=== PATIENT | female | born 1955 | race Caucasian/White ===

== ENCOUNTER → 2016-12-01 | Outpatient (CLI) | payer BC ==
[~2016-12-01] MED LIST: ATOR-22 PO; BUTACAP36 PO; LEVO75TA PO
--- NOTE | 2016-12-01 15:17 | MAMMOGRAPHY REPORT ---
BILATERAL DIGITAL SCREENING MAMMOGRAM TOMOSYNTHESIS WITH CAD: 12/01/2016 CLINICAL HISTORY: Routine screening. TECHNIQUE: Breast tomosynthesis in addition to standard 2D mammography was performed. Current study was also evaluated with a Computer Aided Detection (CAD) system. COMPARISON: Comparison is made to exams dated: 11/28/2014 mammogram, 11/22/2013 mammogram, 11/21/2012 m ammogram, 11/18/2011 mammogram, 09/23/2010 mammogram, and 09/17/2009 mammogram - [facility]. BREAST COMPOSITION: There are scattered areas of fibroglandular density in both breasts. FINDINGS: No suspicious mass, architectural distortion or cluster of microcalcifications is seen. IMPRESSION: ACR BI-RADS CATEGORY 1: NEGATIVE There is no mammographic evidence of malignancy. A 1 year screening mammogram is recommended. The pa tient will receive written notification of the results. Approximately 10% of breast cancers are not detected with mammography. A negative mammographic report should not delay biopsy if a clinically suggestive mass is present. Ana María lucero/pencharissa:12/01/2016 08:07:45 Supervisor Spinning: Eduarda Friedman RT(R)(M), [facility] letter sent: Normal 1/2 BI-RADS Code: ACR BI-RADS Category 1: Negative
== END | disposition home or self-care (01) ==
LOC: C.MAMM 07:19
PROVIDERS: ATTEND Family Medicine
DX: Z12.31 Encounter for screening mammogram for malignant neoplasm of breast (principal)

== ENCOUNTER 2020-11-28 20:47 | Inpatient (IN) ==
[2020-11-28] MEDS ORDERED: PANTOprazole 80 MG in DEXTROSE 5% 100 ML IV ONE (21:48)
--- NOTE | 2020-11-28 21:54 | Emergency Department Note ---
History of Present Illness General Chief complaint: Rectal Bleed Stated complaint: BLOOD IN DIARRHEA Time Seen by Provider: 11/28/20 21:40 Source: patient History of Present Illness Provider complaint: Rectal bleeding and abdominal pain Onset (ago): hour(s) Location: abdomen Radiation: non-radiation Pain Consistency: + constant and + intermittent Quality: + other (Cramping pain) Relieved By: + none Associated symptoms: + headaches (Chronic migraines); no chest pain, no cough, no fever/chills, no nausea/vomiting, no shortness of breath or no weakness This is a 65-year-old female who presents with 6 episodes of rectal bleeding since 6 PM tonight. The patient states that initially was bright red but then it became dark. She thought there was some blood mixed in with the stool as well. She states her stools have been dark but not black. She is not on any blood thinners but she does take Ecotrin once a day about 3-4 times a week for chronic migraine headaches. She is also on nortriptyline for her migraine headaches. She denies any NSAID use. She also complains of abdominal pain which she describes as a cramping pain in the mid and upper abdomen. No modifying factors. No associated vomiting. She denies any fever, cough or cold symptoms, chest pain, shortness of breath or urinary symptoms or hematuria. She does states she had a colonoscopy in 2017 which showed hemorrhoids and a polyp. She does state that she has been having some diarrhea. Home Medications Medication Instructions Recorded Confirmed Type atorvastatin 40 mg tablet 40 mg PO HS 12/13/17 11/28/20 History omega-3 360 dd-pjn-hjh-fish oil 1 cap PO DAILY 11/09/18 11/28/20 History 1,200 mg capsule,delayed release (Fish Oil) amitriptyline 25 mg tablet 25 mg PO HS 30 Days #30 tab 10/09/20 11/28/20 Rx fluticasone propionate 50 2 spray INTRANASAL DAILY 11/28/20 11/28/20 History mcg/actuation nasal spray,suspension levothyroxine 100 mcg tablet 100 mcg PO DAILY 11/28/20 11/28/20 History multivitamin 1 tab PO DAILY 11/28/20 11/28/20 History Allergies Allergy/AdvReac Type Severity Reaction Status Date / Time Sulfa (Sulfonamide Allergy Severe SOB Verified 11/28/20 22:36 Antibiotics) sulfamethoxazole Allergy Severe SOB Verified 11/28/20 22:36 trimethoprim Allergy Severe SOB Verified 11/28/20 22:36 Penicillins Allergy Intermediate HIVES Verified 11/28/20 22:36 influenza virus vacc Allergy Unknown CAN'T Verified 11/28/20 22:36 trivalent, split REMEMBER [From Fluzone] topiramate [From Topamax] AdvReac Intermediate HEART Verified 11/28/20 22:40 RACING, UPSET STOMACH Past Med/Surg History Medical History (Updated 11/29/20 @ 00:23 by Maurice Madden MD) Migraine Right foot sprain Family History Sister FH: kidney cancer Social History Smoking Status: Never smoker Preferred Language: Ugandan Current Living Situation: Family Feels Safe at Home: Yes Review of Systems See HPI for pertinent positives & negatives. and A total of 10 systems reviewed and were otherwise negative Physical Exam Vital Signs Vital Signs - 24 hr 11/28/20 20:59 11/28/20 22:09 11/28/20 23:00 Temperature 36.7 C Temperature Source Temporal Artery Scan Pulse Rate 122 H 116 H Pulse Rate [Carotid] 111 H Pulse Rhythm [Carotid] Regular Respiratory Rate 18 19 Respiratory Effort / Characteristics Non-Labored Spontaneous Non-Labored Respiratory Depth Normal Normal Respiratory Pattern Regular Blood Pressure 140/92 Blood Pressure [Left Arm] 133/88 Blood Pressure Mean 108 Blood Pressure Mean [Left Arm] 103 Blood Pressure Position [Left Arm] Lying Pulse Oximetry 96 95 94 Oxygen Delivery Method Room Air Room Air Sepsis Recent Fever Within 48 Hours No Sepsis New/Unexplained Change in Mental Status No Sepsis Action Taken by Nursing No Action Required Constitutional: Vital signs reviewed. Eyes: Pupils are equal round reactive to light. Conjunctiva are noninjected. ENT: Pharynx is clear without erythema or exudate. Mucous membranes are moist. Neck supple without meningeal signs. Respiratory: Clear to auscultation bilaterally. Breath sounds are equal bilaterally. Cardiovascular: Tachycardic. Regular rhythm. GI: Soft, nondistended with mild supraumbilical tenderness. No guarding. Bowel sounds are present. Rectal: Nonbleeding external hemorrhoid. Dark blood on digital rectal examination without stool. Musculoskeletal: No peripheral edema. No lower extremity tenderness. Integumentary: No cyanosis. or jaundice. Neurological: The patient is awake and alert. No focal deficits. Psychiatric: Anxious. Course Administered Medications Pantoprazole Sodium 40 mg/ (Dextrose) 100 mls @ 20 mls/hr IV Q5H KENAN Stop: 11/29/20 02:59 Last Admin: 11/28/20 22:55 Dose: 8 mg/hr, 20 mls/hr Documented by: [id number] Discontinued Medications Pantoprazole Sodium 80 mg/ (Dextrose) 100 mls @ 400 mls/hr IV NOW ONE Stop: 11/28/20 22:02 Last Infusion: 11/28/20 22:57 Dose: 0 mls/hr Documented by: [id number] Admin: 11/28/20 22:45 Dose: 400 mls/hr Documented by: [id number] Ioversol (Optiray 320 100ml) 94 ml IV ONCE ONE Stop: 11/28/20 22:28 Last Admin: 11/28/20 22:28 Dose: 1 ml Documented by: [id number] Critical Care Time Critical Care Time: Yes Total Critical Care Time: 35 I have personally spent approximately 35 minutes of critical care time in the direct management of this patient. This includes bedside care, interpretation of diagnostic studies, and testing, discussion with consultants, patient, and family members, and other required patient management activities. These minutes are in excess of all separately billable procedures. Medical Decision Making Differential Diagnosis Peptic ulcer disease, gastritis, GI bleed, diverticulosis, anemia Medical Records Attestation: I reviewed the patient's medical records. I did perform a limited focused review of portions of the patient's old chart on the electronic medical record. The patient has had no recent pertinent visits to this hospital. Home Medications Current Medication List: was personally reviewed by me Laboratory Data Attestation: I reviewed the patient's lab results. Result diagrams: 11/28/20 23:29 11/28/20 22:01 Lab Results 11/28/20 11/28/20 11/28/20 Range/Units 22:01 22:01 22:01 WBC 10.96 H (4.8-10.8) K/uL RBC 3.87 L (4.2-5.4) M/uL Hgb 12.3 (12.0-16.0) g/dL Hct 36.0 L (37-47) % MCV 93.0 (80-100) fL MCH 31.8 (25-34) pg MCHC 34.2 (32-36) g/dL RDW Std Deviation 42.4 (36.4-46.3) fL RDW Coeff of Khushi 12.6 (11.5-14.5) % Plt Count 337 (130-400) K/uL MPV 9.2 (7.4-10.4) fL Immature Gran % (Auto) 0.1 % Neut % (Auto) 64.6 % Lymph % (Auto) 26.9 % Divide % (Auto) 5.6 % Eos % (Auto) 2.3 % Baso % (Auto) 0.5 % Neut # (Auto) 7.09 H (1.4-6.5) K/uL Lymph # (Auto) 2.95 (1.2-3.4) K/uL Divide # (Auto) 0.61 H (0.11-0.59) K/uL Eos # (Auto) 0.25 (0-0.5) K/uL Baso # (Auto) 0.05 (0-0.2) K/uL Immature Gran # (Auto) 0.01 (0.00-0.02) K/uL PT (9.0-12.0) Seconds INR (0.9-1.1) APTT (21.0-31.0) Seconds PTT Ratio Sodium 141 (136-145) mmol/L Potassium 4.1 (3.5-5.1) mmol/L Chloride 107 (98-107) mmol/L Carbon Dioxide 25 (21-32) mmol/L Anion Gap 8.0 (3-11) BUN 16 (7-18) mg/dl Creatinine 1.20 (0.6-1.2) mg/dl Est Cr Clr Drug Dosing 42.7 ml/min Est GFR ( Amer) 54.9 ml/min Est GFR (Non-Af Amer) 47.4 ml/min BUN/Creatinine Ratio 13.4 (10-20) Glucose 187 H (70-99) mg/dl Calcium 8.9 (8.5-10.1) mg/dl Total Bilirubin 0.4 (0.2-1) mg/dl AST 25 (15-37) U/L ALT 55 (12-78) U/L Alkaline Phosphatase 75 (45-117) U/L Total Protein 6.8 (6.4-8.2) gm/dl Albumin 3.7 (3.4-5.0) gm/dl Globulin 3.1 (2.5-4.0) gm/dl Albumin/Globulin Ratio 1.2 (0.9-2) COVID-19 Eval Order SARS-CoV-2 (PCR) (Negative) Blood Type A Positive Antibody Screen NEGATIVE 11/28/20 11/28/20 11/28/20 Range/Units 22:01 22:31 22:31 WBC (4.8-10.8) K/uL RBC (4.2-5.4) M/uL Hgb (12.0-16.0) g/dL Hct (37-47) % MCV (80-100) fL MCH (25-34) pg MCHC (32-36) g/dL RDW Std Deviation (36.4-46.3) fL RDW Coeff of Khushi (11.5-14.5) % Plt Count (130-400) K/uL MPV (7.4-10.4) fL Immature Gran % (Auto) % Neut % (Auto) % Lymph % (Auto) % Divide % (Auto) % Eos % (Auto) % Baso % (Auto) % Neut # (Auto) (1.4-6.5) K/uL Lymph # (Auto) (1.2-3.4) K/uL Divide # (Auto) (0.11-0.59) K/uL Eos # (Auto) (0-0.5) K/uL Baso # (Auto) (0-0.2) K/uL Immature Gran # (Auto) (0.00-0.02) K/uL PT 10.1 (9.0-12.0) Seconds INR 1.0 (0.9-1.1) APTT 24.6 (21.0-31.0) Seconds PTT Ratio 0.9 Sodium (136-145) mmol/L Potassium (3.5-5.1) mmol/L Chloride (98-107) mmol/L Carbon Dioxide (21-32) mmol/L Anion Gap (3-11) BUN (7-18) mg/dl Creatinine (0.6-1.2) mg/dl Est Cr Clr Drug Dosing ml/min Est GFR ( Amer) ml/min Est GFR (Non-Af Amer) ml/min BUN/Creatinine Ratio (10-20) Glucose (70-99) mg/dl Calcium (8.5-10.1) mg/dl Total Bilirubin (0.2-1) mg/dl AST (15-37) U/L ALT (12-78) U/L Alkaline Phosphatase (45-117) U/L Total Protein (6.4-8.2) gm/dl Albumin (3.4-5.0) gm/dl Globulin (2.5-4.0) gm/dl Albumin/Globulin Ratio (0.9-2) COVID-19 Eval Order Covid19 at [facility] SARS-CoV-2 (PCR) NEGATIVE (Negative) Blood Type Antibody Screen 11/28/20 Range/Units 23:29 WBC (4.8-10.8) K/uL RBC (4.2-5.4) M/uL Hgb 11.4 L (12.0-16.0) g/dL Hct 33.6 L (37-47) % MCV (80-100) fL MCH (25-34) pg MCHC (32-36) g/dL RDW Std Deviation (36.4-46.3) fL RDW Coeff of Khushi (11.5-14.5) % Plt Count (130-400) K/uL MPV (7.4-10.4) fL Immature Gran % (Auto) % Neut % (Auto) % Lymph % (Auto) % Divide % (Auto) % Eos % (Auto) % Baso % (Auto) % Neut # (Auto) (1.4-6.5) K/uL Lymph # (Auto) (1.2-3.4) K/uL Divide # (Auto) (0.11-0.59) K/uL Eos # (Auto) (0-0.5) K/uL Baso # (Auto) (0-0.2) K/uL Immature Gran # (Auto) (0.00-0.02) K/uL PT (9.0-12.0) Seconds INR (0.9-1.1) APTT (21.0-31.0) Seconds PTT Ratio Sodium (136-145) mmol/L Potassium (3.5-5.1) mmol/L Chloride (98-107) mmol/L Carbon Dioxide (21-32) mmol/L Anion Gap (3-11) BUN (7-18) mg/dl Creatinine (0.6-1.2) mg/dl Est Cr Clr Drug Dosing ml/min Est GFR ( Amer) ml/min Est GFR (Non-Af Amer) ml/min BUN/Creatinine Ratio (10-20) Glucose (70-99) mg/dl Calcium (8.5-10.1) mg/dl Total Bilirubin (0.2-1) mg/dl AST (15-37) U/L ALT (12-78) U/L Alkaline Phosphatase (45-117) U/L Total Protein (6.4-8.2) gm/dl Albumin (3.4-5.0) gm/dl Globulin (2.5-4.0) gm/dl Albumin/Globulin Ratio (0.9-2) COVID-19 Eval Order SARS-CoV-2 (PCR) (Negative) Blood Type Antibody Screen Imaging Data Radiologist's Impression: [facility] Patient: ANKITA CANCHOLA (Female) : 55 Status: ER Date: 11/28/20 22:44 Room #: History: epigastric pain and rectal bleed Slices: [id number] Priors: Tech: Iain Guevara @ [phone] Exams: CT ABDOMEN & PELVIS With Contrast Contrast: IV Amt: 94 ml optiray Accession Numbers: [id number] Referring Physician: REFERRED SELF Preliminary Findings Only See Final Report For Complete Findings CT ABDOMEN & PELVIS With Contrast: Comparison to ultrasound report from August 22, 2007. The appendix is upper normal in diameter measuring 8-9 mm. There is normal gas in the appendix. No surrounding inflammation is seen to suggest acute appendicitis. Bowel loops are nondilated. There are scattered gas fluid levels in fluid-filled distended transverse and left colon suggesting gastroenteritis and/or ileus. There is diverticulosis of the left colon without signs of acute diverticulitis. Fatty infiltration of the liver. The gallbladder, pancreas, spleen, adrenal glands, and kidneys appear within normal limits. Aorta is mildly calcified but nondilated. The uterus, adnexa, and urinary bladder are unremarkable. Moderate degenerative changes in the lower lumbar spine with L4-5. No fracture or subluxation. Radiologist: Silverio Worley MD Study ready at 22:50 and initial results transmitted at 23:13 ECG Data Attestation: I personally reviewed and interpreted this ECG as follows: Indication: + tachycardia Rate (beats per minute): 109 Rhythm: + sinus tachycardia ECG Neffs: + Normal ECG ST segments: no ST elevation ECG Findings: no PVCs MDM Narrative I did evaluate the patient as noted above. The patient presents with abdominal pain and rectal bleeding for the past several hours. She has dark red blood on rectal examination. IV access was established. I did treat her with Protonix. She was given a bolus and then placed on a continuous drip. I did place an order for continuous cardiac monitoring. The monitor showed sinus tachycardia rate of 108 bpm. I did order and personally review the patient's 12-lead EKG as described above. She has sinus tachycardia without acute ischemia. I did order and review the patient's blood work as noted in the electronic medical record. Her white count is 10.9. Hemoglobin is 12.3. Platelet count is 337. Coags in the lecture lites and LFTs are unremarkable. Glucose is elevated 187. I did order a CT of the abdomen and pelvis. I did review the images myself as well as the radiology report as described above. She has fluid in the colon but otherwise no acute changes. I did discuss the test results with the patient. I did recommend hospitalization for further care and evaluation. She was agreeable. I did later hear from the nurse that the patient try to get up and go to the bathroom. He found her walking towards the bathroom and caught her as she passed out. She did pass bright red blood from the rectum. She was unconscious for only a few seconds and her blood pressure was 105 systolic when he checked it. I did immediately assess her and her blood pressures up to 133/88. I did repeat an H&H and it was 11.4 compared to 12.3 earlier. I did discuss the case with Dr. Waldrop and his resident. They will consult gastr oenterology. She will be admitted to the hospital. Covid screening test was negative. Impression & Plan Acute gastrointestinal bleeding, Acute blood loss anemia, Syncope Discharge Plan Visit Data Chief Complaint: Rectal Bleed Stated Complaint: BLOOD IN DIARRHEA ED Provider: Maurice Madden Discharge Problem: Acute gastrointestinal bleeding, Acute blood loss anemia, Syncope Forms Stand Alone Forms: [facility] Prescriptions Prescriptions: No Action amitriptyline 25 mg tablet 25 mg PO HS 30 Days Qty: 30 RF: 5 omega 5-swu-btm-fish oil [Fish Oil] 360-1,200 mg capsule,delayed release(DR/EC) 1 cap PO DAILY RF: 0 atorvastatin 40 mg tablet 40 mg PO HS RF: 0 multivitamin Tablet 1 tab PO DAILY RF: 0 levothyroxine 100 mcg tablet 100 mcg PO DAILY RF: 0 fluticasone propionate [Flonase] 50 mcg/actuation [place],Suspension 2 spray INTRANASAL DAILY RF: 0 Referrals Referrals: Christiano Ellis DO [Primary Care Provider] -
[2020-11-28] MEDS ORDERED: PANTOprazole 40 MG in DEXTROSE 5% 100 ML IV SCH (22:00)
[2020-11-28 22:15] LABS: Basophils # (auto) 0.05 K/uL (0-0.2); Basophils % (auto) 0.5 %; Eosinophils # (auto) 0.25 K/uL (0-0.5); Eosinophils % (auto) 2.3 %; Hemoglobin 12.3 g/dL (12.0-16.0); Immature Granulocytes # (auto) 0.01 K/uL (0.00-0.02); Immature Granulocytes % (auto) 0.1 %; Lymphocytes # (auto) 2.95 K/uL (1.2-3.4); Lymphocytes % (auto) 26.9 %; Mean Corpuscular Hemoglobin 31.8 pg (25-34); Mean Corpuscular Hgb Conc 34.2 g/dL (32-36); Mean Platelet Volume 9.2 fL (7.4-10.4); Monocytes # (auto) 0.61 K/uL (0.11-0.59); Monocytes % (auto) 5.6 %; Neutrophils # (auto) 7.09 K/uL (1.4-6.5); Neutrophils % (auto) 64.6 %; Platelet Count 337 K/uL (130-400); RDW Coefficient of Variation 12.6 % (11.5-14.5); RDW Standard Deviation 42.4 fL (36.4-46.3); Red Blood Count 3.87 M/uL (4.2-5.4); White Blood Count 10.96 K/uL (4.8-10.8)
[2020-11-28 22:25] LABS: Partial Thromboplastin Ratio 0.9; Partial Thromboplastin Time 24.6 Seconds (21.0-31.0); Prothrombin Time 10.1 Seconds (9.0-12.0)
[2020-11-28] MEDS ORDERED: OPTIRAY 320 100ml IV ONE (22:27)
[2020-11-28 22:32] LABS: Albumin Level 3.7 gm/dl (3.4-5.0); BUN Creatinine Ratio 13.4 (10-20); Calcium 8.9 mg/dl (8.5-10.1); Creatinine Clr Calc Pharmacy 42.7 ml/min; Est GFR (African American) 54.9 ml/min; Est GFR (Non-African American) 47.4 ml/min; Potassium 4.1 mmol/L (3.5-5.1)
[2020-11-28 22:35] LABS: Albumin Globulin Ratio 1.2 (0.9-2); Bilirubin,Total 0.4 mg/dl (0.2-1); Globulin 3.1 gm/dl (2.5-4.0); Total Protein 6.8 gm/dl (6.4-8.2)
[2020-11-28 23:37] LABS: Hematocrit (blood only) 33.6 % (37-47); Hemoglobin 11.4 g/dL (12.0-16.0)
--- NOTE | 2020-11-29 00:16 | History & Physical Report ---
Date of Service November 29, 2020 Assessment & Plan (1) Acute gastrointestinal bleeding: Plan: 65-year-old female admitted for management of acute GI bleeding 1) acute GI bleed with anemia Baseline hemoglobin of 15 2 years ago, 12.4 on arrival to ER today 11.3 on repeat, 10.4 on second repeat Jerome bright red blood during bowel movements Unstable symptomatic anemia given syncope with decreasing blood counts Protonix drip, gastroenterology consult History colonoscopy with polyps in 2017 Patient would likely benefit from having both an EGD and colonoscopy. Transfusing 2 units of packed red blood cells Stool culture pending for bacterial infectious origin given acute onset within 1 day - cbc Q4 - aztreonam ppx given cephalosporin allergy dvt ppx: contraindicated fen/gi: npo, protonix drip code status: full code Dispo: PCU (2) Syncope: History of Present Illness Primary Care Provider: Christiano Ellis DO 65-year-old male past medical history of mixed headaches and migraines presenting to the emergency department for multiple episodes of rectal bleeding. She states that earlier today she noticed she has having some dark-colored stools and stomach cramps that progressed to bright red-colored blood in her diarrhea. She has not had anything happen like this before. Outside of the cramping she denies any pain with the bloody bowel movements. She states that the last few have been jerome blood. She does attest to feeling lightheaded and dizzy particularly when up and walking around. She does also have some fluttering or palpitations in her chest. She is not on any blood thinners but does take aspirin multiple times a week for her headaches and takes a daily fish oil pill. ER course: Significant for syncopal episode while trying to walk to the bathroom, rapidly decreasing hemoglobin of 1 unit loss in 1.5 hours. Allergies Allergy/AdvReac Type Severity Reaction Status Date / Time Sulfa (Sulfonamide Allergy Severe SOB Verified 11/28/20 22:36 Antibiotics) sulfamethoxazole Allergy Severe SOB Verified 11/28/20 22:36 trimethoprim Allergy Severe SOB Verified 11/28/20 22:36 Penicillins Allergy Intermediate HIVES Verified 11/28/20 22:36 influenza virus vacc Allergy Unknown CAN'T Verified 11/28/20 22:36 trivalent, split REMEMBER [From Fluzone] topiramate [From Topamax] AdvReac Intermediate HEART Verified 11/28/20 22:40 RACING, UPSET STOMACH Home Medications Medication Instructions Recorded Confirmed Type atorvastatin 40 mg tablet 40 mg PO HS 12/13/17 11/28/20 History omega-3 360 fb-rnn-cev-fish oil 1 cap PO DAILY 11/09/18 11/28/20 History 1,200 mg capsule,delayed release (Fish Oil) amitriptyline 25 mg tablet 25 mg PO HS 30 Days #30 tab 10/09/20 11/28/20 Rx fluticasone propionate 50 2 spray INTRANASAL DAILY 11/28/20 11/28/20 History mcg/actuation nasal spray,suspension levothyroxine 100 mcg tablet 100 mcg PO DAILY 11/28/20 11/28/20 History multivitamin 1 tab PO DAILY 11/28/20 11/28/20 History Past Med/Surg History Medical History (Updated 11/29/20 @ 00:23 by Maurice Madden MD) Migraine Right foot sprain Family History Sister FH: kidney cancer Social History Smoking Status: Never smoker Hx Alcohol Use: No Hx Substance Use: No Preferred Language: [place] Islander Communication Ability: Effective Beliefs That Will Affect Care: None Current Living Situation: Family Other Information That Helps Us Care for You: No Feels Safe at Home: Yes Assistive Devices: Glasses Review of Systems Review of Systems: All systems reviewed & are unremarkable except as noted in Subjective Physical Exam Physical Exam: const: pale appearing female laying in bed in trendelenburg card: tachycardic, regular rhythm pulm: cta, breathing easily on room air abd: epigastric tenderness, soft, no rebound or guarding ext: 2+ peripheral pulses Results & Data Results & Data ([facility]) Vital Signs (Past 12 Hours) Vital Signs Temp Pulse Pulse Resp BP BP Pulse Ox 11/28/20 23:00 111 H 19 133/88 94 11/28/20 22:09 116 H 95 11/28/20 20:59 36.7 C 122 H 18 140/92 96 Laboratory Results Laboratory Results WBC 10.96 K/uL (4.8-10.8) H 11/28/20 22:01 RBC 3.87 M/uL (4.2-5.4) L 11/28/20 22:01 Hgb 10.7 g/dL (12.0-16.0) L 11/29/20 00:18 Hct 32.1 % (37-47) L 11/29/20 00:18 MCV 93.0 fL (80-100) 11/28/20 22:01 MCH 31.8 pg (25-34) 11/28/20 22: MCHC 34.2 g/dL (32-36) 11/28/20 22:01 RDW Std Deviation 42.4 fL (36.4-46.3) 11/28/20 22:01 RDW Coeff of Khushi 12.6 % (11.5-14.5) 11/28/20 22: Plt Count 337 K/uL (130-400) 11/28/20 22:01 MPV 9.2 fL (7.4-10.4) 11/28/20 22:01 Immature Gran % (Auto) 0.1 % 11/28/20 22: Neut % (Auto) 64.6 % 11/28/20 22:01 Lymph % (Auto) 26.9 % 11/28/20 22:01 [place] % (Auto) 5.6 % 11/28/20 22:01 Eos % (Auto) 2.3 % 11/28/20 22: Baso % (Auto) 0.5 % 11/28/20 22:01 Neut # (Auto) 7.09 K/uL (1.4-6.5) H 11/28/20 22: Lymph # (Auto) 2.95 K/uL (1.2-3.4) 11/28/20 22:01 [place] # (Auto) 0.61 K/uL (0.11-0.59) H 11/28/20 22:01 Eos # (Auto) 0.25 K/uL (0-0.5) 11/28/20 22: Baso # (Auto) 0.05 K/uL (0-0.2) 11/28/20 22: Immature Gran # (Auto) 0.01 K/uL (0.00-0.02) 11/28/20 22: PT 10.1 Seconds (9.0-12.0) 11/28/20 22:01 INR 1.0 (0.9-1.1) 11/28/20 22:01 APTT 24.6 Seconds (21.0-31.0) 11/28/20 22:01 PTT Ratio 0.9 11/28/20 22:01 Sodium 141 mmol/L (136-145) 11/28/20 22:01 Potassium 4.1 mmol/L (3.5-5.1) 11/28/20 22:01 Chloride 107 mmol/L (98-107) 11/28/20 22:01 Carbon Dioxide 25 mmol/L (21-32) 11/28/20 22:01 Anion Gap 8.0 (3-11) 11/28/20 22:01 BUN 16 mg/dl (7-18) 11/28/20 22:01 Creatinine 1.20 mg/dl (0.6-1.2) 11/28/20 22:01 Est Cr Clr Drug Dosing 42.7 ml/min 11/28/20 22:01 Est GFR ( Amer) 54.9 ml/min 11/28/20 22:01 Est GFR (Non-Af Amer) 47.4 ml/min 11/28/20 22:01 BUN/Creatinine Ratio 13.4 (10-20) 11/28/20 22:01 Glucose 187 mg/dl (70-99) H 11/28/20 22:01 Calcium 8.9 mg/dl (8.5-10.1) 11/28/20 22:01 Total Bilirubin 0.4 mg/dl (0.2-1) 11/28/20 22:01 AST 25 U/L (15-37) 11/28/20 22:01 ALT 55 U/L (12-78) 11/28/20 22:01 Alkaline Phosphatase 75 U/L (45-117) 11/28/20 22:01 Total Protein 6.8 gm/dl (6.4-8.2) 11/28/20 22:01 Albumin 3.7 gm/dl (3.4-5.0) 11/28/20 22:01 Globulin 3.1 gm/dl (2.5-4.0) 11/28/20 22:01 Albumin/Globulin Ratio 1.2 (0.9-2) 11/28/20 22:01 COVID-19 Eval Order Covid19 at [facility] 11/28/20 22:31 SARS-CoV-2 (PCR) NEGATIVE (Negative) 11/28/20 22:31 Blood Type A Positive 11/28/20 22:01 Blood Type Recheck A Positive 11/28/20 23:29 Antibody Screen NEGATIVE 11/28/20 22:01 Crossmatch See Detail 11/28/20 23:29 Draw and Hold Cancelled 11/28/20 23:29 Code Status & VTE Plan VTE Prophylaxis Plan VTE Prophylaxis will be ordered: No Supervising Physician Co-Signing Physician Notes Attending addendum: I have physically seen this patient, have supervised the medical residents activities, and agree with the H&P unless as otherwise noted. Assessment and Plan: Acute GI bleed with anemia- Bright red blood per rectum with bowel movements Patient with large bloody bowel movement while in the ED H&H every 6 hours N.p.o. Transfuse 2 units PRBCs due to large volume of blood loss Stool studies Aztreonam IV, gets hives with penicillins, so ceftriaxone is not a good option Consult gastroenterology Protonix IV Remaining orders and notations as noted Resident Activity Tracking Resident Involvement: Resident Care Provided Care Provided: Adult Hospital Medicine (1) Syncope Syncope type: unspecified Qualified Code(s): R55 - Syncope and collapse
[2020-11-29 00:35] LABS: Hematocrit (blood only) 32.1 % (37-47); Hemoglobin 10.7 g/dL (12.0-16.0)
[2020-11-29] MEDS: NSS + 20MEQ KCL 20 MEQ/1,000 ML BAG IV SCH ×2 (00:55→11:45)
[2020-11-29] MEDS ORDERED: SODIUM CHLORIDE 0.9% 250 ML IV PRN (01:00)
[2020-11-29] MEDS: AZTREONAM 1,000 MG in DEXTROSE 5% 100 ML IV SCH ×2 (01:20→11:26)
[2020-11-29] MEDS ORDERED: ACETAMINOPHEN 325 MG TAB PO PRN (02:08)
[2020-11-29] MEDS ORDERED: ONDANSETRON INJ 2 MG/ML 2 ML VIAL IV PRN (02:08)
[2020-11-29] MEDS ORDERED: NITROGLYCERIN SL 0.4 MG/TAB TAB SL PRN (02:08)
[2020-11-29] MEDS: PANTOprazole 40 MG in DEXTROSE 5% 100 ML IV SCH ×2 (05:23→11:02)
[2020-11-29] MEDS ORDERED: LEVOTHYROXINE SODIUM 100 MCG TABLET PO SCH (06:30)
--- NOTE | 2020-11-29 06:56 | CT Scan Report ---
CT abd pelvis IV con only CLINICAL HISTORY: epigastric pain and rectal bleed COMPARISON STUDY: None. TECHNIQUE: A dose lowering technique was utilized adhering to the principles of ALARA. CT DOSE: 375.46 mGy.cm FINDINGS: Lower chest: Limited evaluation of lung bases shows minimal patchy airspace opacities and septal thic kening within bilateral lower lobes. Also mild diffuse bronchiectasis seen within bilateral bases. Liver: The contrast-enhanced liver is normal in size and contour. Diffuse decrease in attenuation of its parenchyma is seen without evidence of focal lesions or intrahepatic biliary dilatation. Gallbladder: Unremarkable. Spleen: Normal in size and attenuation. Pancreas: Unremarkable. Adrenal glands: Unremarkable. Kidneys: There is symmetric renal cortical enhancement. The kidneys are normal in size without hydron ephrosis.4 mm hypoattenuating lesion is seen within right renal cortex likely representing small cyst s. No definite evidence of nephrolithiasis. Pelvic viscera: Urinary bladder is adequately filled with urine. Uterus shows normal appearance for p atient's age group. Bowel: The small bowel and colon are normal in course and caliber. Is mildly dilated measuring 10 mm in diameter (301/49). No evidence of inflammatory changes within periappendicular fat. Diverticulosis of the transverse and sigmoid colon is seen without evidence of diverticulitis. Rectum is fluid-filled which could be seen in diarrheal state. Peritoneum: There is no intraperitoneal free air or abdominal ascites. Vasculature: Abdominal aorta is normal in caliber with scattered calcifications of its wall. Adenopathy: None. Skeletal structures: Degenerative changes of the spine, most prominent at L4-L5 level. Minimal arely listhesis of L4 on L5 is seen. IMPRESSION: 1. Nondilated loops of bowel. Fluid-filled descending colon and rectum, could be seen in diarrheal s moss. 2. Prominent appendix without evidence of inflammatory changes/appendicitis. 3. Diverticulosis of sigmoid colon. No evidence of diverticulitis. 4. Hepatic steatosis. 5. Atherosclerosis 6. Bronchiectasis. 7. The rest of findings as above. ACT 112: Negative or not required by law. The above report was generated using voice recognition software. It may contain grammatical, syntax o r spelling errors. Electronically signed by: Vidhi Covarrubias DO 11/29/2020 6:55 AM
[2020-11-29] MEDS ORDERED: ROCURONIUM BROMIDE 10 MG/ML 5 ML VIAL IV ONE (09:02)
[2020-11-29] MEDS ORDERED: PROPOFOL IV EMULSION 10 MG/ML 20 ML VIAL IV ONE (09:02)
[2020-11-29] MEDS ORDERED: ONDANSETRON INJ 2 MG/ML 2 ML VIAL ONE (09:02)
[2020-11-29] MEDS ORDERED: DEXAMETHASONE SOD INJ 4 MG/ML VIAL ONE (09:02)
[2020-11-29] MEDS ORDERED: SUGAMMADEX SODIUM 200 MG/2 ML VIAL IV ONE (09:04)
--- NOTE | 2020-11-29 09:06 | Hospitalist Progress Note ---
Date of Service November 29, 2020 Assessment & Plan (1) Acute gastrointestinal bleeding: Plan: 65 yo F with PMH of migraine disorder admitted for acute GI bleeding 1) Acute GI bleed with anemia -Likely UGIB given epigastric tenderness and melena and brisk hematochezia, possibly some LGIB component as well -Hgb 10.7 from 12.4 on admission, 2 units of pRBCs given after syncope in ER, monitor H+H with CBC q4h -NSS, Protonix 40 mg IV, Aztreonam ppx -Previous hx of colonic polyps in 2017 -GI consulted, awaiting recommendations -Stool culture pending for infectious workup 2) Syncope -Likely secondary to acute blood loss and volume depletion vs primary neurologic /cardiac pathology -Monitor for recurrence -Expected to improve with volume resuscitation and pRBC transfusion dvt ppx: contraindicated fen/gi: NPO, NSS code status: full code Dispo: PCU (2) Syncope: Admission and Anticipated Discharge Date Admission Date: November 29, 2020 Subjective Pt reporting mild-moderate pain around epigastrium, denies lightheadedness, dizziness. Had slightly dark bowel movement in bedside commode shortly before exam. Review of Systems Review of Systems: All systems reviewed & are unremarkable except as noted in Subjective Gastrointestinal: + abdominal pain; no nausea and no vomiting Physical Exam Constitutional: WD/WN, vitals as above well developed and well nourished; no acute distress Eyes: + anicteric sclerae and EOM intact bilaterally ENMT: Dry mucous membranes Respiratory: normal respiratory effort, lungs clear to auscultation Cardiovascular: RRR, no murmur, no edema Gastrointestinal (Abdomen): Percussion/Palpation: + abdomen tender (mild in epigastrium) Skin: no rashes, warm and dry Results & Data Results & Data ([facility]) Vital Signs (Past 12 Hours) Vital Signs Temp Pulse Pulse Pulse Resp BP BP 11/29/20 08:30 36.6 C 88 18 130/77 11/29/20 07:33 37.0 C 103 H 17 11/29/20 05:03 36.7 C 95 H 105/72 11/29/20 04:02 36.7 C 90 18 107/74 11/29/20 02:14 36.7 C 96 H 117/80 11/29/20 02:03 88 20 108/60 11/28/20 23:00 111 H 19 133/88 11/28/20 22:09 116 H 11/28/20 20:59 36.7 C 122 H 18 140/92 BP Pulse Ox 11/29/20 08:30 97 11/29/20 07:33 128/76 94 11/29/20 05:03 96 11/29/20 04:02 96 11/29/20 02:14 97 11/29/20 02:03 96 11/28/20 23:00 94 11/28/20 22:09 95 11/28/20 20:59 96 Resident Activity Tracking Resident Involvement: Resident Care Provided Care Provided: Adult Hospital Medicine (1) Syncope Syncope type: unspecified Qualified Code(s): R55 - Syncope and collapse
[2020-11-29] MEDS ORDERED: fentaNYL citrate 100 MCG/2 ML VIAL ONE (09:25)
--- NOTE | 2020-11-29 09:35 | Gastrointestinal Consultation ---
Date of Consultation November 29, 2020 Assessment & Plan (1) Acute gastrointestinal bleeding: Patient presents in signs and symptoms of gastrointestinal bleeding. We will proceed with urgent upper endoscopy today. I have also taken the liberty of consenting the patient for colonoscopy should the EGD be negative. If no obvious source of bleeding is found the patient would likely need to be referred to a tertiary Medical Center with interventional radiology capabilities. I have discussed the risks of the procedures with the patient include bleeding, infection, perforation, pain and need for follow-up studies. History of Present Illness Reason for Consultation: Hematochezia Attending Physician: Jeffrey Rivera DO History of Present Illness Patient is a 65-year-old male who presents for evaluation of hematochezia. The symptoms began suddenly yesterday and are described as bright red blood per rectum numerous times. She did have a prior colonoscopy performed by Dr. Colin and it appears Dr. Cannon at some point. The patient does not recall any results of these procedures. She denies having fevers chills sweats or weight changes. She denies having any hematemesis. The patient does not recall if she is taking any blood thinning medicines nor nonsteroidals. She denies any intra- abdominal surgeries and notes that she has a crampy discomfort localized to her mid abdominal region. Allergies Allergy/AdvReac Type Severity Reaction Status Date / Time Sulfa (Sulfonamide Allergy Severe SOB Verified 11/28/20 22:36 Antibiotics) sulfamethoxazole Allergy Severe SOB Verified 11/28/20 22:36 trimethoprim Allergy Severe SOB Verified 11/28/20 22:36 Penicillins Allergy Intermediate HIVES Verified 11/28/20 22:36 influenza virus vacc Allergy Unknown CAN'T Verified 11/28/20 22:36 trivalent, split REMEMBER [From Fluzone] topiramate [From Topamax] AdvReac Intermediate HEART Verified 11/28/20 22:40 RACING, UPSET STOMACH Home Medications Medication Instructions Recorded Confirmed Type atorvastatin 40 mg tablet 40 mg PO HS 12/13/17 11/28/20 History omega-3 360 zv-ayp-wou-fish oil 1 cap PO DAILY 11/09/18 11/28/20 History 1,200 mg capsule,delayed release (Fish Oil) amitriptyline 25 mg tablet 25 mg PO HS 30 Days #30 tab 10/09/20 11/28/20 Rx fluticasone propionate 50 2 spray INTRANASAL DAILY 11/28/20 11/28/20 History mcg/actuation nasal spray,suspension levothyroxine 100 mcg tablet 100 mcg PO DAILY 11/28/20 11/28/20 History multivitamin 1 tab PO DAILY 11/28/20 11/28/20 History Patient History Medical History (Updated 11/29/20 @ 00:23 by Maurice Madden MD) Migraine Right foot sprain Family History Sister FH: kidney cancer Social History Smoking Status: Never smoker Hx Alcohol Use: No Hx Substance Use: No Preferred Language: Pashto Communication Ability: Effective Beliefs That Will Affect Care: None Current Living Situation: Family Other Information That Helps Us Care for You: No Feels Safe at Home: Yes Assistive Devices: Glasses Review of Systems Constitutional: no sweats, no malaise and no weight loss Eyes: no diplopia Ear, Nose, Mouth, Throat: no ear pain and no ear trauma Respiratory: no cough and no change in sputum Cardiovascular: no chest pain with activity Gastrointestinal: Ongoing hematochezia Genitourinary: no urinary frequency and no urinary incontinence Musculoskeletal: no radicular pain and no deformity Integumentary: no rash Neurologic: no falls Psychiatric: no hopelessness Endocrine: no polydipsia Hematologic / Lymphatic: no coagulopathy Allergy / Immunological: no lip swelling Physical Exam Constitutional: WD/WN, vitals as above Eyes: PERRL, conjunctivae normal, anicteric sclerae Neck: trachea midline, no thyromegaly Respiratory: normal respiratory effort, lungs clear to auscultation Cardiovascular: Rate/Rhythm: regular rate and regular rhythm Heart Sounds: no murmur Gastrointestinal (Abdomen): Mild epigastric tenderness no rebound or peritoneal signs Skin: no rashes, warm and dry Results & Data ([facility]) Vital Signs (Past 12 Hours) Vital Signs Temp Pulse Pulse Pulse Resp BP BP 11/29/20 08:45 36.6 C 87 16 113/73 11/29/20 08:30 36.6 C 88 18 130/77 11/29/20 07:33 37.0 C 103 H 17 11/29/20 05:03 36.7 C 95 H 105/72 11/29/20 04:02 36.7 C 90 18 107/74 11/29/20 02:14 36.7 C 96 H 117/80 11/29/20 02:03 88 20 108/60 11/28/20 23:00 111 H 19 133/88 11/28/20 22:09 116 H BP Pulse Ox 11/29/20 08:45 95 11/29/20 08:30 97 11/29/20 07:33 128/76 94 11/29/20 05:03 96 11/29/20 04:02 96 11/29/20 02:14 97 11/29/20 02:03 96 11/28/20 23:00 94 11/28/20 22:09 95 Laboratory Results Laboratory Results - last 24 hr 11/28/20 11/28/20 11/28/20 22:01 22:01 22:01 WBC 10.96 H RBC 3.87 L Hgb 12.3 Hct 36.0 L MCV 93.0 MCH 31.8 MCHC 34.2 RDW Std Deviation 42.4 RDW Coeff of Khushi 12.6 Plt Count 337 MPV 9.2 Immature Gran % (Auto) 0.1 Neut % (Auto) 64.6 Lymph % (Auto) 26.9 Kershaw % (Auto) 5.6 Eos % (Auto) 2.3 Baso % (Auto) 0.5 Neut # (Auto) 7.09 H Lymph # (Auto) 2.95 Kershaw # (Auto) 0.61 H Eos # (Auto) 0.25 Baso # (Auto) 0.05 Immature Gran # (Auto) 0.01 PT INR APTT PTT Ratio Sodium 141 Potassium 4.1 Chloride 107 Carbon Dioxide 25 Anion Gap 8.0 BUN 16 Creatinine 1.20 Est Cr Clr Drug Dosing 42.7 Est GFR ( Amer) 54.9 Est GFR (Non-Af Amer) 47.4 BUN/Creatinine Ratio 13.4 Glucose 187 H Calcium 8.9 Total Bilirubin 0.4 AST 25 ALT 55 Alkaline Phosphatase 75 Total Protein 6.8 Albumin 3.7 Globulin 3.1 Albumin/Globulin Ratio 1.2 COVID-19 Eval Order SARS-CoV-2 (PCR) Blood Type A Positive Blood Type Recheck Antibody Screen NEGATIVE Crossmatch See Detail Draw and Hold 11/28/20 11/28/20 11/28/20 22:01 22:31 22:31 WBC RBC Hgb Hct MCV MCH MCHC RDW Std Deviation RDW Coeff of Khushi Plt Count MPV Immature Gran % (Auto) Neut % (Auto) Lymph % (Auto) Kershaw % (Auto) Eos % (Auto) Baso % (Auto) Neut # (Auto) Lymph # (Auto) K[place]haw # (Auto) Eos # (Auto) Baso # (Auto) Immature Gran # (Auto) PT 10.1 INR 1.0 APTT 24.6 PTT Ratio 0.9 Sodium Potassium Chloride Carbon Dioxide Anion Gap BUN Creatinine Est Cr Clr Drug Dosing Est GFR ( Amer) Est GFR (Non-Af Amer) BUN/Creatinine Ratio Glucose Calcium Total Bilirubin AST ALT Alkaline Phosphatase Total Protein Albumin Globulin Albumin/Globulin Ratio COVID-19 Eval Order Covid19 at [facility] SARS-CoV-2 (PCR) NEGATIVE Blood Type Blood Type Recheck Antibody Screen Crossmatch Draw and Hold 11/28/20 11/28/20 11/28/20 23:29 23:29 23:29 WBC RBC Hgb 11.4 L Hct 33.6 L MCV MCH MCHC RDW Std Deviation RDW Coeff of Khushi Plt Count MPV Immature Gran % (Auto) Neut % (Auto) Lymph % (Auto) Kershaw % (Auto) Eos % (Auto) Baso % (Auto) Neut # (Auto) Lymph # (Auto) Kershaw # (Auto) Eos # (Auto) Baso # (Auto) Immature Gran # (Auto) PT INR APTT PTT Ratio Sodium Potassium Chloride Carbon Dioxide Anion Gap BUN Creatinine Est Cr Clr Drug Dosing Est GFR ( Amer) Est GFR (Non-Af Amer) BUN/Creatinine Ratio Glucose Calcium Total Bilirubin AST ALT Alkaline Phosphatase Total Protein Albumin Globulin Albumin/Globulin Ratio COVID-19 Eval Order SARS-CoV-2 (PCR) Blood Type Blood Type Recheck A Positive Antibody Screen Crossmatch See Detail Draw and Hold Cancelled 11/29/20 00:18 WBC RBC Hgb 10.7 L Hct 32.1 L MCV MCH MCHC RDW Std Deviation RDW Coeff of Khushi Plt Count MPV Immature Gran % (Auto) Neut % (Auto) Lymph % (Auto) Kershaw % (Auto) Eos % (Auto) Baso % (Auto) Neut # (Auto) Lymph # (Auto) Kershaw # (Auto) Eos # (Auto) Baso # (Auto) Immature Gran # (Auto) PT INR APTT PTT Ratio Sodium Potassium Chloride Carbon Dioxide Anion Gap BUN Creatinine Est Cr Clr Drug Dosing Est GFR ( Amer) Est GFR (Non-Af Amer) BUN/Creatinine Ratio Glucose Calcium Total Bilirubin AST ALT Alkaline Phosphatase Total Protein Albumin Globulin Albumin/Globulin Ratio COVID-19 Eval Order SARS-CoV-2 (PCR) Blood Type Blood Type Recheck Antibody Screen Crossmatch Draw and Hold Diagnostic Findings CT abd pelvis IV con only CLINICAL HISTORY: epigastric pain and rectal bleed COMPARISON STUDY: None. TECHNIQUE: A dose lowering technique was utilized adhering to the principles of ALARA. CT DOSE: 375.46 mGy.cm FINDINGS: Lower chest: Limited evaluation of lung bases shows minimal patchy airspace opacities and septal thickening within bilateral lower lobes. Also mild diffuse bronchiectasis seen within bilateral bases. Liver: The contrast-enhanced liver is normal in size and contour. Diffuse decrease in attenuation of its parenchyma is seen without evidence of focal lesions or intrahepatic biliary dilatation. Gallbladder: Unremarkable. Spleen: Normal in size and attenuation. Pancreas: Unremarkable. Adrenal glands: Unremarkable. Kidneys: There is symmetric renal cortical enhancement. The kidneys are normal in size without hydronephrosis.4 mm hypoattenuating lesion is seen within right renal cortex likely representing small cysts. No definite evidence of nephrolithiasis. Pelvic viscera: Urinary bladder is adequately filled with urine. Uterus shows normal appearance for patient's age group. Bowel: The small bowel and colon are normal in course and caliber. Is mildly dilated measuring 10 mm in diameter (301/49). No evidence of inflammatory changes within periappendicular fat. Diverticulosis of the transverse and sigmoid colon is seen without evidence of diverticulitis. Rectum is fluid-filled which could be seen in diarrheal state. Peritoneum: There is no intraperitoneal free air or abdominal ascites. Vasculature: Abdominal aorta is normal in caliber with scattered calcifications of its wall. Adenopathy: None. Skeletal structures: Degenerative changes of the spine, most prominent at L4-L5 level. Minimal anterolisthesis of L4 on L5 is seen. IMPRESSION: 1. Nondilated loops of bowel. Fluid-filled descending colon and rectum, could be seen in diarrheal state. 2. Prominent appendix without evidence of inflammatory changes/appendicitis. 3. Diverticulosis of sigmoid colon. No evidence of diverticulitis. 4. Hepatic steatosis. 5. Atherosclerosis 6. Bronchiectasis. 7. The rest of findings as above.
--- NOTE | 2020-11-29 09:51 | Anesthesiology Consultation ---
Date of Service November 29, 2020 Assessment & Plan Chart Review Chart Review: Acceptable Risk for Surgery Consults Requested none History Surgery Operation Date: 11/29/20 08:55 Proposed Procedures p Esophagogastroduodenoscopy - Mirna Buenrostro DO Height/Weight Height: 5 ft 2 in Weight: 71.7 kg Allergies Allergy/AdvReac Type Severity Reaction Status Date / Time Sulfa (Sulfonamide Allergy Severe SOB Verified 11/28/20 22:36 Antibiotics) sulfamethoxazole Allergy Severe SOB Verified 11/28/20 22:36 trimethoprim Allergy Severe SOB Verified 11/28/20 22:36 Penicillins Allergy Intermediate HIVES Verified 11/28/20 22:36 influenza virus vacc Allergy Unknown CAN'T Verified 11/28/20 22:36 trivalent, split REMEMBER [From Fluzone] topiramate [From Topamax] AdvReac Intermediate HEART Verified 11/28/20 22:40 RACING, UPSET STOMACH Medications Home Medications Medication Instructions Recorded Confirmed Last Taken atorvastatin 40 mg tablet 40 mg PO HS 12/13/17 11/28/20 11/27/20 omega-3 360 xv-rjv-vxg-fish oil 1 cap PO DAILY 11/09/18 11/28/20 11/28/20 1,200 mg capsule,delayed release (Fish Oil) amitriptyline 25 mg tablet 25 mg PO HS 30 Days #30 tab 10/09/20 11/28/20 11/27/20 fluticasone propionate 50 2 spray INTRANASAL DAILY 11/28/20 11/28/20 11/28/20 mcg/actuation nasal spray,suspension levothyroxine 100 mcg tablet 100 mcg PO DAILY 11/28/20 11/28/20 11/28/20 multivitamin 1 tab PO DAILY 11/28/20 11/28/20 11/28/20 Active Medications Generic Name Dose Route Start Last Admin Trade Name Freq PRN Reason Stop Dose Admin Potassium Chloride/Sodium Chloride 20 meq in 1,000 mls @ 100 mls/hr 11/29/20 01:00 11/29/20 00:55 Normal Saline W/20 Meq Kcl IV 12/29/20 00:59 100 mls/hr .Q10H KENAN Administration Aztreonam 1,000 mg/ Dextrose 110 mls @ 100 mls/hr 11/29/20 01:00 11/29/20 02:37 IV 12/09/20 00:59 Infused Q8H KENAN Infusion Protocol Pantoprazole Sodium 40 mg/ 100 mls @ 20 mls/hr 11/29/20 03:30 11/29/20 05:23 Dextrose IV 12/29/20 03:29 8 mg/hr Q5H KENAN 20 mls/hr Administration 8 MG/HR Levothyroxine Sodium 100 mcg 11/29/20 06:30 11/29/20 05:24 Levothyroxine Sodium 100 Mcg Tablet PO 12/29/20 06:29 100 mcg DAILYBB KENAN Administration NPO Date Last Intake of Fluids: 11/28/20 Time Last Intake of Fluids: 17:30 Date Last Intake of Solids: 11/28/20 Time Last Intake of Solids: 17:30 Past Medical History Medical History (Updated 11/29/20 @ 00:23 by Maurice Madden MD) Migraine Right foot sprain Past Family History Family History Sister FH: kidney cancer Social History Smoking Status: Never smoker Hx Alcohol Use: No Hx Substance Use: No Physical Exam Vital Signs Last Vital Signs Temp 36.6 C 11/29/20 08:45 Pulse 87 11/29/20 08:45 Resp 16 11/29/20 08:45 BP 113/73 11/29/20 08:45 Pulse Ox 95 11/29/20 08:45 Testing Laboratory Results 11/29/20 00:18 11/28/20 22:01 PT 10.1 Seconds (9.0-12.0) 11/28/20 22:01 INR 1.0 (0.9-1.1) 11/28/20 22:01 APTT 24.6 Seconds (21.0-31.0) 11/28/20 22:01 Blood Type A Positive 11/28/20 22:01 Antibody Screen NEGATIVE 11/28/20 22:01
[2020-11-29] MEDS ORDERED: PHENYLEPHRINE 100MCG/ML 5ML SYR ONE (10:01)
--- NOTE | 2020-11-29 10:09 | Communication Note ---
Date of Service: November 29, 2020 The patient underwent upper endoscopy and partial colonoscopy today. The upper endoscopy was notable for no evidence of gastrointestinal bleeding. The colonoscopy was notable for a large amount of red blood and old blood throughout the visualized colon. I was able to advance the endoscope into the mid transverse colon. Recommendations Recommend referral to a center with interventional radiology support for suspected diverticular hemorrhage
--- NOTE | 2020-11-29 10:10 | Post Operative Brief Note ---
Immediate Post Op Note v1 Date of Surgery November 29, 2020 Pre & Post Diagnosis Operation Date: 11/29/20 08:55 Pre-Op Diagnosis: hematochezia Post-Op Diagnosis: hematochezia I identified the patient and participated in the time-out.: Yes Procedure Operation Date: 11/29/20 08:55 Actual Procedures p Esophagogastroduodenoscopy(Not Applicable) - DO medina Key Colonoscopy(Not Applicable) - Mirna Buenrostro DO Surgeon Mirna Buenrostro DO Trust Mail Clerk none Estimated Blood Loss 0 Findings Consistent with Post-Op Diagnosis
--- NOTE | 2020-11-29 10:13 | GI REPORT ---
Patient Name: Tasha Camejo Procedure Date: 11/29/2020 9:44 AM Date of : 1955 Admit Type: Inpatient Age: 65 Gender: Female Attending MD: Mirna Buenrostro DO Procedure: Upper GI endoscopy Providers: Mirna Buenrostro DO Referring MD: Jeffrey Rivera Indications: Hematochezia Medicines: Monitored Anesthesia Care Complications: No immediate complications. Estimated blood loss: Minimal. Estimated Blood Loss: Estimated blood loss was minimal. Procedure: Pre-Anesthesia Assessment: - Prior to the procedure, a History and Physical was performed, and patient medications, allergies and sensitivities were reviewed. The patient's tolerance of previous anesthesia was reviewed. - The risks and benefits of the procedure and the sedation options and risks were discussed with the patient. All questions were answered and informed consent was obtained. - Patient identification and proposed procedure were verified prior to the procedure by the physician, the nurse and the upward bound director. The procedure was verified in the pre-procedure area in the procedure room. - Pre-procedure physical examination revealed no contraindications to sedation. - ASA Grade Assessment: II - A patient with mild systemic disease. - After reviewing the risks and benefits, the patient was deemed in satisfactory condition to undergo the procedure. - The anesthesia plan was to use monitored anesthesia care (MAC). - Immediately prior to administration of medications, the patient was re-assessed for adequacy to receive sedatives. - The heart rate, respiratory rate, oxygen saturations, blood pressure, adequacy of pulmonary ventilation, and response to care were monitored throughout the procedure. - The physical status of the patient was re-assessed after the procedure. After obtaining informed consent, the endoscope was passed under direct vision. Throughout the procedure, the patient's blood pressure, pulse, and oxygen saturations were monitored continuously. The Endoscope was introduced through the mouth, and advanced to the fourth part of duodenum. The upper GI endoscopy was accomplished without difficulty. The patient tolerated the procedure well. Findings: The examined esophagus was normal. The entire examined stomach was normal. The examined duodenum was normal. Impression: - Normal esophagus. - Normal stomach. - Normal examined duodenum. - No specimens collected. Recommendation: - Perform a colonoscopy today. Mirna Buenrostro D.O. Mirna Buenrostro DO 11/29/2020 10:13:08 AM This report has been signed electronically. Note Initiated On: 11/29/2020 9:44 AM Number of Addenda: 0 I attest to the content of the Intraoperative Record and orders documented therein, exceptions below {[id number]}
--- NOTE | 2020-11-29 10:17 | GI REPORT ---
Patient Name: Tasha Camejo Procedure Date: 11/29/2020 9:58 AM Date of : 1955 Admit Type: Inpatient Age: 65 Gender: Female Attending MD: Mirna Buenrostro DO Procedure: Colonoscopy Providers: Mirna Buenrostro DO Referring MD: Jeffrey Rivera Indications: Hematochezia Medicines: Monitored Anesthesia Care Complications: No immediate complications. Estimated blood loss: Minimal. Estimated Blood Loss: Estimated blood loss was minimal. Procedure: Pre-Anesthesia Assessment: - Prior to the procedure, a History and Physical was performed, and patient medications, allergies and sensitivities were reviewed. The patient's tolerance of previous anesthesia was reviewed. - The risks and benefits of the procedure and the sedation options and risks were discussed with the patient. All questions were answered and informed consent was obtained. - Patient identification and proposed procedure were verified prior to the procedure by the physician, the nurse and the glove stitcher. The procedure was verified in the procedure room. - Pre-procedure physical examination revealed no contraindications to sedation. - ASA Grade Assessment: II - A patient with mild systemic disease. - After reviewing the risks and benefits, the patient was deemed in satisfactory condition to undergo the procedure. - The anesthesia plan was to use monitored anesthesia care (MAC). - Immediately prior to administration of medications, the patient was re-assessed for adequacy to receive sedatives. - The heart rate, respiratory rate, oxygen saturations, blood pressure, adequacy of pulmonary ventilation, and response to care were monitored throughout the procedure. - The physical status of the patient was re-assessed after the procedure. After I obtained informed consent, the scope was passed under direct vision. Throughout the procedure, the patient's blood pressure, pulse, and oxygen saturations were monitored continuously. The Endoscope was introduced through the anus and advanced to the transverse colon. The colonoscopy was performed with difficulty due to poor bowel prep. Successful completion of the procedure was aided by lavage. The patient tolerated the procedure well. The quality of the bowel preparation was poor. Findings: The digital rectal exam findings include non-thrombosed external hemorrhoids. Pertinent negatives include normal sphincter tone. Red blood was found in the rectum, in the sigmoid colon, in the descending colon and in the transverse colon. There was red blood seen throughout the colon suggestive of bleeding from further beyond the transverse colon. Due to extensive blood clot and blood within the colon I was unable to advance the scope into the right colon Impression: - Preparation of the colon was poor. - Non-thrombosed external hemorrhoids found on digital rectal exam. - Blood in the rectum, in the sigmoid colon, in the descending colon and in the transverse colon. - No specimens collected. Recommendation: - [facility] to [facility] for [facility] care. - NPO. -Findings most consistent with a diverticular hemorrhage, perhaps in the right side of the colon. Would recommend a referral to a tertiary care center with interventional radiology support given the brisk nature of her hemorrhage. Mirna Buenrostro D.O. Mirna Buenrostro, DO 11/29/2020 10:17:29 AM This report has been signed electronically. Note Initiated On: 11/29/2020 9:58 AM Number of Addenda: 0 I attest to the content of the Intraoperative Record and orders documented therein, exceptions below {[id number]}
--- NOTE | 2020-11-29 10:27 | Anesthesiology Progress Note ---
Date of Service November 29, 2020 Anesthesia Post Procedure Vital Signs Vital Signs: Temp Pulse Pulse Pulse Resp BP BP 11/29/20 09:30 36.5 C 78 18 140/72 11/29/20 09:00 36.7 C 89 18 147/77 H 11/29/20 08:45 36.6 C 87 16 113/73 11/29/20 08:30 36.6 C 88 18 130/77 11/29/20 07:33 37.0 C 103 H 17 11/29/20 05:03 36.7 C 95 H 105/72 11/29/20 04:02 36.7 C 90 18 107/74 11/29/20 02:14 36.7 C 96 H 117/80 11/29/20 02:03 88 20 108/60 11/28/20 23:00 111 H 19 133/88 11/28/20 22:09 116 H 11/28/20 20:59 36.7 C 122 H 18 140/92 BP Pulse Ox 11/29/20 09:30 97 11/29/20 09:00 98 11/29/20 08:45 95 11/29/20 08:30 97 11/29/20 07:33 128/76 94 11/29/20 05:03 96 11/29/20 04:02 96 11/29/20 02:14 97 11/29/20 02:03 96 11/28/20 23:00 94 11/28/20 22:09 95 11/28/20 20:59 96 Transfer of Care Handoff Completed per policy Notes Mental Status: alert / awake / arousable and participated in evaluation Patient Amnestic to Procedure: Yes Nausea / Vomiting: adequately controlled Pain: adequately controlled Airway Patency, RR, SpO2: stable & adequate BP & HR: stable & adequate Hydration State: stable & adequate Anesthetic Complications: no major complications apparent
--- NOTE | 2020-11-29 11:52 | Discharge Summary ---
Date of Service November 29, 2020 Admission HPI Per Admitting Provider 65-year-old female past medical history of mixed headaches and migraines presenting to the emergency department for multiple episodes of rectal bleeding. She states that earlier today she noticed she has having some dark-colored stools and stomach cramps that progressed to bright red-colored blood in her diarrhea. She has not had anything happen like this before. Outside of the cramping she denies any pain with the bloody bowel movements. She states that the last few have been jerome blood. She does attest to feeling lightheaded and dizzy particularly when up and walking around. She does also have some fluttering or palpitations in her chest. She is not on any blood thinners but does take aspirin multiple times a week for her headaches and takes a daily fish oil pill. ER course: Significant for syncopal episode while trying to walk to the bathroom, rapidly decreasing hemoglobin of 1 unit loss in 1.5 hours. Admission Exam Per Admitting Provider const: pale appearing female laying in bed in trendelenburg card: tachycardic, regular rhythm pulm: cta, breathing easily on room air abd: epigastric tenderness, soft, no rebound or guarding ext: 2+ peripheral pulses Principal Diagnosis Acute GI bleed Discharge Exam Constitutional well developed; no acute distress ENMT Dry mucous membranes Neck normal visual inspection and trachea midline Respiratory normal respiratory effort; no respiratory distress and no labored breathing Cardiovascular RRR, no murmur, no edema Gastrointestinal (Abdomen) Soft, nondistended, mild tenderness to palpation of epigastrium Skin no rashes, warm and dry Neurologic awake; no focal motor deficits Discharge Data Allergies Allergy/AdvReac Type Severity Reaction Status Date / Time Sulfa (Sulfonamide Allergy Severe SOB Verified 11/28/20 22:36 Antibiotics) sulfamethoxazole Allergy Severe SOB Verified 11/28/20 22:36 trimethoprim Allergy Severe SOB Verified 11/28/20 22:36 Penicillins Allergy Intermediate HIVES Verified 11/28/20 22:36 influenza virus vacc Allergy Unknown CAN'T Verified 11/28/20 22:36 trivalent, split REMEMBER [From Fluzone] topiramate [From Topamax] AdvReac Intermediate HEART Verified 11/28/20 22:40 RACING, UPSET STOMACH Consultations 11/28/20 23:24 ED Decision to Admit Stat 11/29/20 02:08 Consult Gastroenterology Routine 11/29/20 11:38 Burn CD for patient Stat Procedures Performed Operation Date: 11/29/20 08:55 Actual Procedures p Esophagogastroduodenoscopy(Not Applicable) - Mirna Buenrostro DO s Colonoscopy(Not Applicable) - Mirna Buenrostro DO Ordered Studies 11/28/20 21:48 CT abd pelvis IV con only Urgent Hospital Course (1) Acute gastrointestinal bleedin yo F with PMH of migraine disorder admitted for acute GI bleeding on 11/28. GI consulted, EGD on 11/29 negative, colonoscopy found active and diffuse bleeding from sigmoid colon to transverse colon. GI unable to visualize ascending colon but suspecting proximal source of bleeding likely in ascending colon or possibly distal small intestine -Pt has been hemodynamically stable, most recent vitals- 123/77, 82, 36.7 C, 94% on RA. -Hgb 12.4 on admission, dropped swiftly to 10.7. Brief syncopal episode in ER and decreasing Hgb- received 2 units pRBCs -Most recent Hgb 12.7, Hct 38.2 after pRBC transfusion -Has been receiving NSS, Protonix 40 mg IV. Aztreonam ppx stopped Given active bleeding without localization of source, further workup needed, including CT angiography with IR. Requires transfer to [facility] for angiography. Spoke to multiple [facility] providers via conference call- including accepting hospitalist Dr. Brewer, IR Dr. Lucas, DR Dr. Lozano, GI Dr. Noriega. All in agreement CT angiography is next best step, transfer accepted, [facility] Rm [id number]. Transfer paperwork completed, fax/nursing team numbers provided to RN, pt to be transported today via ambulance with ACLS, receiving IVF, PPI en route to [facility]. (2) Syncope: Total Time Total Time Spent Total Time Spent (In Minutes): >30 Discharge Plan Discharge Items Patient Disposition: Transfer Acute Care Hospital Reason For Visit: GIB Discharge Diagnosis: GI bleed Activity: Per Instructions section Non-emergency contact: Primary Care Provider Call non-emergency contact if: you have any medication questions Follow-up/Referrals: Christiano Ellis DO [Primary Care Provider] - Diet: Nothing by Mouth Addtl Attending Provider Instructions: As per [facility] Please disregard med rec below Meds per [facility] Pending Studies at Discharge: Yes Studies:: H+H Stand-Alone Forms: My [facility] Skilled Items Patient informed of condition?: Yes DNR: No Discharge Level of Care: Other Communicable Disease: No Discharge Prognosis: Other Lines: Peripheral IV Urinary Catheter: No Medications and DC Order Prescriptions: Continued amitriptyline 25 mg tablet 25 mg PO HS 30 Days Qty: 30 RF: 5 omega 0-vvs-pcf-fish oil [Fish Oil] 360-1,200 mg capsule,delayed release(DR/EC) 1 cap PO DAILY RF: 0 atorvastatin 40 mg tablet 40 mg PO HS RF: 0 multivitamin Tablet 1 tab PO DAILY RF: 0 levothyroxine 100 mcg tablet 100 mcg PO DAILY RF: 0 fluticasone propionate 50 mcg/actuation Perkins,Suspension 2 spray INTRANASAL DAILY RF: 0 Discharge Orders: Discharge Order (Routine); Ordered 11/29/20 Ordered By: Shahzad Leal Admission Data Admit Date/Time: 11/29/20 00:06 Attending Provider: Jeffrey Rivera Admit Provider: Janeen Grant Primary Care Provider: Christiano Ellis Other Providers: Mark Turner ; Mirna Buenrostro Other Interventions: Discharge Summary Assessment (RN) Last Done: 11/29/20 14:36 Supervising Physician Co-Signing Physician Notes I personally examined the patient and verified all snow points of history and exam, discussed case, and agree with decision making with Dr Leal. Patient seen post endoscopy. Discussed with GIongoing active bleeding. Patient herself very groggy, but in discussion she understands the situation, and would prefer transfer to [place]. Sandra phone call completed by Dr. Leal/myselfspoke with hospitalist, [facility] radiology, interventional radiology, gastroenterology. Patient accepted for transfer. Unfortunately, with local traffic situations related to a [place] [employer] football game, we were informed that ground transportation would not be able to be set up in any way shape or form in a reliable fashion. Given the patient's active bleeding, and our inability to control the hemorrhage, unfortunately a situation that would have been appropriate for ACLS via ground, given the local situation, gave us no option other than air transportation. Vitals noted, in general she is awake and alert pleasant no distress but very fatigued. HEENT normocephalic atraumatic mucous membranes moist. Breathing unlabored no accessory muscle use good effort. Heart tell if she has pallor, have not seen her beforeand she was immediately post scopes, but did look somewhat pale. Labs noted. Acute GI bleed with acute blood loss anemialikely lower versus distal small bowel source. Unable to localize/control bleeding, has already been transfused, bleeding continuestransfer to [facility] for interventional radiology. See aboveunfortunately due to situations out of our control, and a situation that required a degree of acuity for patient safety/lifegiven ongoing hemorrhagewe had no viable option for transfer other than air given that we were informed ground transport would be unreliable to set up, if we could set it up at all. Resident Activity Tracking Resident Involvement: Resident Care Provided Care Provided: Adult Hospital Medicine
[2020-11-29 12:14] LABS: Basophils # (auto) 0.04 K/uL (0-0.2); Basophils % (auto) 0.3 %; Eosinophils # (auto) 0.03 K/uL (0-0.5); Eosinophils % (auto) 0.3 %; Hematocrit (blood only) 38.2 % (37-47); Hemoglobin 12.7 g/dL (12.0-16.0); Immature Granulocytes # (auto) 0.03 K/uL (0.00-0.02); Immature Granulocytes % (auto) 0.3 %; Lymphocytes # (auto) 2.64 K/uL (1.2-3.4); Mean Corpuscular Hemoglobin 30.1 pg (25-34); Mean Corpuscular Hgb Conc 33.2 g/dL (32-36); Mean Corpuscular Volume 90.5 fL (80-100); Monocytes # (auto) 0.66 K/uL (0.11-0.59); Monocytes % (auto) 5.7 %; Neutrophils # (auto) 8.09 K/uL (1.4-6.5); Neutrophils % (auto) 70.4 %; Platelet Count 232 K/uL (130-400); RDW Coefficient of Variation 13.2 % (11.5-14.5); RDW Standard Deviation 43.3 fL (36.4-46.3); Red Blood Count 4.22 M/uL (4.2-5.4); White Blood Count 11.49 K/uL (4.8-10.8)
[2020-11-29 12:33] LABS: BUN Creatinine Ratio 18.4 (10-20); Calcium 8.3 mg/dl (8.5-10.1); Creatinine Clr Calc Pharmacy 59.1 ml/min; Est GFR (African American) 79.9 ml/min; Est GFR (Non-African American) 68.9 ml/min; Potassium 4.7 mmol/L (3.5-5.1)
--- NOTE | 2020-11-29 17:39 | Billing Data ---
Date of Service November 29, 2020 Coding Level of Care Code D/C DAY MANAGEMENT >30 MINS
[2020-11-29] MEDS ORDERED: AMITRIPTYLINE HCL 25 MG TAB PO SCH (21:00)
[2020-11-29] MEDS ORDERED: ATORVASTATIN 40 MG TAB PO SCH (21:00)
--- NOTE | 2020-11-29 22:57 | Billing Data ---
Date of Service November 29, 2020 Coding Level of Care Code 45095 Initial Inpt Care Lvl 3
--- NOTE | 2020-11-30 19:57 | Electrocardiogram Report ---
Test Reason : Blood Pressure : / mmHG Vent. Rate : 109 BPM Atrial Rate : 109 BPM P-R Int : 164 ms QRS Dur : 078 ms QT Int : 330 ms P-R-T Axes : 045 036 096 degrees QTc Int : 444 ms Poor data quality, interpretation may be adversely affected Sinus tachycardia Cannot rule out Anterior infarct (cited on or before 13-DEC-2017) Abnormal ECG When compared with ECG of 13-DEC-2017 07:54, Nonspecific T wave abnormality has replaced inverted T waves in Anterior leads Confirmed by Cr Weston ([id number]) on 11/30/2020 7:56:34 PM Referred By: REFERRED SELF Confirmed By:Cr Weston
--- NOTE | 2020-11-30 20:07 | Electrocardiogram Report ---
Test Reason : Blood Pressure : / mmHG Vent. Rate : 100 BPM Atrial Rate : 100 BPM P-R Int : 166 ms QRS Dur : 082 ms QT Int : 338 ms P-R-T Axes : 045 032 105 degrees QTc Int : 436 ms Normal sinus rhythm Nonspecific T wave abnormality Abnormal ECG When compared with ECG of 28-NOV-2020 21:54, (unconfirmed) No significant change was found Confirmed by Cr Weston ([id number]) on 11/30/2020 8:07:34 PM Referred By: REFERRED SELF Confirmed By:Cr Weston
[2020-12-01 10:22] LABS: iSTAT Creatinine 1.1 mg/dl (0.6-1.3); iSTAT Hemoglobin 11.9 g/dl (12.0-16.0); iSTAT Ionized Calcium 1.2 mmol/l (1.12-1.32); iSTAT Potassium 4.1 mmol/L (3.3-5.0)
== END 2020-11-29 15:00 | disposition short-term general hospital (02) | DRG 378 ==
LOC: ED 20:47 → SUATTDRO 11-29 00:06 → 2S 11-29 00:06